=== PATIENT | female | born 1940 | race Caucasian/White ===

== ENCOUNTER 2017-02-14 09:05 | Observation (INO) | payer MEDICARE, OTHER ==
[2017-02-14 09:34] LABS: BASO % 1.7 % (0-2); BASO ABSOLUTE COUNT 0.1 tho/cmm (0.0-0.2); EOS % 3.1 % (0-7); EOSINOPHIL ABSOLUTE COUNT 0.2 tho/cmm (0.0-0.7); HGB-HEMOGLOBIN 14.4 gm/dl (12.0-15.5); IMMATURE GRANULOCYTES ABSOLUTE 0.01 tho/cmm (0-0.03); IMMATURE GRANULOCYTES PERCENT 0.2 % (0-0.3); LYMPH % 33.1 % (20-45); MCHC MEAN CORPUSCULAR HGB CONC 33.5 % (32.0-36.0); MCV (MEAN CELL VOLUME) 92.7 fl (82.0-96.0); MONO % 12.2 % (0-12); MONOCYTE ABSOLUTE COUNT 0.7 tho/cmm (0.0-1.2); NEUTROPHIL ABSOLUTE COUNT 2.9 tho/cmm (1.6-8.0); NEUTROPHIL-AUTOMATED 2.9 tho/cmm (1.6-8.0); NEUTROPHILS % 49.7 % (40-80); PLATELET COUNT 301 tho/cmm (150-450); RED BLOOD COUNT 4.64 mil/cmm (4.00-5.20); RED CELL DISTRIBUTION WIDTH 13.3 % (12.4-16.4); WHITE BLOOD COUNT 5.9 tho/cmm (4.0-10.0)
[2017-02-14 09:48] LABS: ALKALINE PHOSPHATASE 91 U/L (33-138); ALT/SGPT 31 U/L (12-78); ANION GAP 11 mmol/L (0-20); AST/SGOT 21 U/L (10-40); BILIRUBIN,TOTAL 0.4 mg/dl (0-1.5); BLOOD UREA NITROGEN 17 mg/dl (6-24); CALCIUM 9.6 mg/dl (8.5-10.5); CARBON DIOXIDE-VENOUS 26 mmol/L (22-32); CHLORIDE 106 mmol/l (96-110); CREATININE 0.81 mg/dl (0.50-1.10); GLUCOSE 107 mg/dL (70-110); LIPASE 238 U/L (73-393); POTASSIUM 4.2 mmol/L (3.7-5.1); SODIUM 139 mmol/L (135-145); eGFR VALUE FOR BLACK 81 mL/Min
[2017-02-14] MEDS ORDERED: MOBIC15 M2 PO (10:18)
[2017-02-14] MEDS ORDERED: PAXIL20 M1 PO (10:19)
[2017-02-14] MEDS ORDERED: XANAX0.5 M1 PO (10:19)
[2017-02-14] MEDS ORDERED: PRILOSEC OTC20 M1 PO (10:19)
[2017-02-14] MEDS ORDERED: TYLENOL PM EX-1 EAC4 PO (10:19)
[2017-02-14] MEDS ORDERED: LYSINE500 M3 PO (10:19)
[2017-02-14] MEDS ORDERED: CENTRUM SILVER1 EAC3 PO (10:20)
== END 2017-02-14 19:00 ==
LOC: EDMED 09:05 → EMR2 12:30 → SHSB 13:20 → ORW 15:35 → PACU 15:54 → SHSB 16:50
PROVIDERS: Emergency Medicine; ADMIT Surgery
PROC: 0WUF0JZ Supplement Abdominal Wall with Synthetic Substitute, Open Approach (ICD-10-PCS; principal; 2017-02-14)
DX: K43.6 Other and unspecified ventral hernia with obstruction, without gangrene (principal); M19.90 Unspecified osteoarthritis, unspecified site; F41.9 Anxiety disorder, unspecified; F32.9 Major depressive disorder, single episode, unspecified; K21.9 Gastro-esophageal reflux disease without esophagitis; Z79.1 Long term (current) use of non-steroidal anti-inflammatories (NSAID); Z79.899 Other long term (current) drug therapy; Z88.2 Allergy status to sulfonamides; Z90.49 Acquired absence of other specified parts of digestive tract; Z98.51 Tubal ligation status; Z98.890 Other specified postprocedural states
CPT/HCPCS: C1781; J1170; J1956; J2405; J3010; J7030